=== PATIENT | male | born 1995 | race American Indian/Alaskan Native ===

== ENCOUNTER 2019-07-04 01:10 | Emergency (ER) | payer SELFPAY ==
[2019-07-04] MEDS ORDERED: PEPCID IV ONE (01:41)
[2019-07-04] MEDS ORDERED: BENTYL IM ONE (01:41)
[2019-07-04] MEDS ORDERED: ZOFRAN IV ONE (01:41)
[2019-07-04] MEDS ORDERED: NACL 0.9% 1000 ML 1,000 ML IV ONE ×2 (01:41)
[2019-07-04 01:52] LABS: Hematocrit 42.6 % (35.5-45.6); Hemoglobin 14.4 gm/dl (11.8-15.2); Mean Corpuscular HGB Conc 34 % (32-34); Red Blood Count 6.25 M/mm3 (3.65-5.03); Red Cell Distribution Width 14.8 % (13.2-15.2)
[2019-07-04 01:57] LABS: Mean Corpuscular Volume 68 fl (84-94)
[2019-07-04 01:58] LABS: Platelet Count 156 K/mm3 (140-440)
[2019-07-04 02:16] LABS: Alanine Aminotransferase 35 units/L (7-56); Albumin 4.4 g/dL (3.9-5); BUN/Creatinine Ratio 11; Blood Urea Nitrogen 10 mg/dL (9-20); Calcium 9.1 mg/dL (8.4-10.2); Hemolysis Index 8
--- NOTE | 2019-07-04 02:55 | Emergency Department Report ---
ED N/V/D HPI - General Chief complaint: Nausea/Vomiting/Diarrhea Stated complaint: POSS FOOD POISONING Time Seen by Provider: 07/04/19 01:40 Source: patient Mode of arrival: Ambulatory Limitations: No Limitations - History of Present Illness Initial comments: Patient is a 24-year-old -[place] male who is presenting with nausea vomiting diarrhea the last several hours. Patient states that he ate some eggs that were in his freezer Ater for prolonged period of time. Patient started having nausea vomiting diarrhea after. Patient has some mild crampy diffuse abdominal pain. He denies fever. Patient has no blood in his vomit or stools. Location: diffuse Pain Scale: 7 - Related Data Previous Rx's Medication Instructions Recorded Last Taken Type Ciprofloxacin HCl [Ciprofloxacin 500 mg PO Q12HR #14 tab 07/04/19 Unknown Rx TAB] Dicyclomine [Bentyl] 20 mg PO QID #10 tablet 07/04/19 Unknown Rx Famotidine [Pepcid] 40 mg PO QHS #10 tablet 07/04/19 Unknown Rx Metoclopramide [Reglan] 10 mg PO TID PRN #12 tab 07/04/19 Unknown Rx Allergies Allergy/AdvReac Type Severity Reaction Status Date / Time amoxicillin Allergy Hives Verified 07/04/19 01:14 ED Review of Systems ROS: Stated complaint: POSS FOOD POISONING Other details as noted in HPI Comment: All other systems reviewed and negative ED Past Medical Hx - Past Medical History Previous Medical History?: No - Surgical History Past Surgical History?: Yes Additional Surgical History: Tonsillectomy, Adenoidectomy - Social History Smoking Status: Current Every Day Smoker Substance Use Type: Marijuana - Medications Home Medications: Home Medications Medication Instructions Recorded Confirmed Last Taken Type Ciprofloxacin HCl [Ciprofloxacin 500 mg PO Q12HR #14 tab 07/04/19 Unknown Rx TAB] Dicyclomine [Bentyl] 20 mg PO QID #10 tablet 07/04/19 Unknown Rx Famotidine [Pepcid] 40 mg PO QHS #10 tablet 07/04/19 Unknown Rx Metoclopramide [Reglan] 10 mg PO TID PRN #12 tab 07/04/19 Unknown Rx ED Physical Exam - General Limitations: No Limitations General appearance: alert, in no apparent distress - Head Head exam: Present: atraumatic, normocephalic - Eye Eye exam: Present: normal appearance - ENT ENT exam: Present: mucous membranes moist - Neck Neck exam: Present: normal inspection - Respiratory Respiratory exam: Present: normal lung sounds bilaterally. Absent: respiratory distress, wheezes, rales, rhonchi - Cardiovascular Cardiovascular Exam: Present: regular rate, normal rhythm. Absent: systolic murmur, diastolic murmur, rubs, gallop - GI/Abdominal GI/Abdominal exam: Present: soft, tenderness (diffuse), normal bowel sounds. Absent: distended, guarding, rebound, rigid - Rectal Rectal exam: Present: deferred - Extremities Exam Extremities exam: Present: normal inspection - Back Exam Back exam: Present: normal inspection - Neurological Exam Neurological exam: Present: alert, oriented X3 - Psychiatric Psychiatric exam: Present: normal affect, normal mood - Skin Skin exam: Present: warm, dry, intact, normal color. Absent: rash ED Course Vital Signs 07/04/19 01:13 Temperature 98.6 F Pulse Rate 80 Respiratory 18 Rate Blood Pressure 118/83 O2 Sat by Pulse 98 Oximetry ED Medical Decision Making - Lab Data Result diagrams: 07/04/19 01:42 07/04/19 01:42 Lab Results 07/04/19 07/04/19 Range/Units 01:42 01:42 WBC 6.9 (4.5-11.0) K/mm3 RBC 6.25 H (3.65-5.03) M/mm3 Hgb 14.4 (11.8-15.2) gm/dl Hct 42.6 (35.5-45.6) % MCV 68 L (84-94) fl MCH 23 L (28-32) pg MCHC 34 (32-34) % RDW 14.8 (13.2-15.2) % Plt Count 156 (140-440) K/mm3 Sodium 139 (137-145) mmol/L Potassium 3.3 L (3.6-5.0) mmol/L Chloride 101.0 (98-107) mmol/L Carbon Dioxide 24 (22-30) mmol/L Anion Gap 17 mmol/L BUN 10 (9-20) mg/dL Creatinine 0.9 (0.8-1.5) mg/dL Estimated GFR > 60 ml/min BUN/Creatinine Ratio 11 % Glucose 118 H (75-100) mg/dL Calcium 9.1 (8.4-10.2) mg/dL Total Bilirubin 0.80 (0.1-1.2) mg/dL AST 25 (5-40) units/L ALT 35 (7-56) units/L Alkaline Phosphatase 55 (35-129) units/L Total Protein 7.5 (6.3-8.2) g/dL Albumin 4.4 (3.9-5) g/dL Albumin/Globulin Ratio 1.4 % Lipase 43 (13-60) units/L - Medical Decision Making Patient started on Cipro empirically to cover for Salmonella. Patient given medications for symptomatic relief. Patient was hydrated and is feeling better at the time of discharge. Critical care attestation.: If time is entered above; I have spent that time in minutes in the direct care of this critically ill patient, excluding procedure time. ED Disposition Clinical Impression: Gastroenteritis Food poisoning Qualifiers: Encounter type: initial encounter Injury intent: accidental or unintentional Qualified Code(s): T62.91XA - Toxic effect of unspecified noxious substance eaten as food, accidental (unintentional), initial encounter Disposition: DC- TO HOME OR SELFCARE Is pt being admited?: No Does the pt Need Aspirin: No Condition: Stable Instructions: Gastroenteritis (ED), Food Poisoning (ED) Referrals: REINALDO KUMAR MD [Primary Care Provider] - 3-5 Days Time of Disposition: 02:54
[2019-07-04 03:09] LABS: Anisocytosis 1+; Basophils % (Manual) 0 % (0.0-1.8); Hypochromasia 2+; Total Cells Counted 100
[2019-07-04 03:10] LABS: Large Platelets 1+; Platelet Estimate Consistent w Auto; Poikilocytosis 1+
[2019-07-04 03:25] VITALS: BP 101/63
== END 2019-07-04 03:24 | disposition home or self-care (01) ==
LOC: ED 01:10
DX: A05.9 Bacterial foodborne intoxication, unspecified (principal); F17.200 Nicotine dependence, unspecified, uncomplicated; F12.10 Cannabis abuse, uncomplicated; Z79.899 Other long term (current) drug therapy; Z90.89 Acquired absence of other organs; Z88.1 Allergy status to other antibiotic agents
CPT/HCPCS: 36415; 80053; 83690; 85007; 85025; 96361; 96372; 96374; 96375; 99283; J0500; J2405; J7030

== ENCOUNTER 2021-06-11 15:34 | Outpatient (CLI) | payer BC ==
[2021-06-11 16:17] LABS: Basophils % (Auto) 0.2 % (0.0-1.8); Eosinophils # (Auto) 0.1 K/mm3 (0.0-0.4); Eosinophils % (Auto) 0.9 % (0.0-4.3); Hematocrit 35.2 % (35.5-45.6); Hemoglobin 11.5 gm/dl (11.8-15.2); Lymphocytes # (Auto) 1.8 K/mm3 (1.2-5.4); Lymphocytes % (Auto) 28.3 % (13.4-35.0); Mean Corpuscular HGB Conc 33 % (32-34); Monocytes # (Auto) 0.5 K/mm3 (0.0-0.8); Monocytes % (Auto) 8.1 % (0.0-7.3); Platelet Count 136 K/mm3 (140-440); Red Blood Count 5.11 M/mm3 (3.65-5.03); Red Cell Distribution Width 15.1 % (13.2-15.2)
[2021-06-11 16:20] LABS: Alanine Aminotransferase 16 units/L (7-56); Albumin 4.1 g/dL (3.9-5); BUN/Creatinine Ratio 15; Blood Urea Nitrogen 12 mg/dL (9-20); Calcium 8.6 mg/dL (8.4-10.2); Hemolysis Index 3
[2021-06-11 16:22] LABS: Mean Corpuscular Volume 69 fl (84-94)
[2021-06-11 17:10] LABS: Erythrocyte Sedimentation Rate 30 mm/Hr (0-20)
[2021-06-15 14:25] LABS: Vitamin D, 25-OH, D2 <4 ng/mL
== END 2021-06-11 15:35 | disposition home or self-care (01) ==
LOC: LAB 15:34
PROVIDERS: ATTEND Specialist
DX: G93.41 Metabolic encephalopathy (principal)
CPT/HCPCS: 36415; 80053; 82306; 82607; 83921; 84443; 85025; 85652; 86592